=== PATIENT | female | born 1955 | race Caucasian/White ===

== ENCOUNTER → 2016-06-04 | Outpatient (CLI) | payer BC ==
[~2016-06-04] MED LIST: ACYCLOVIR400 MG PO; BACTRIM DS 8001 TAB PO; CHEMO
== END ==
LOC: SUN.DIA 10:50
DX: E11.65 Type 2 diabetes mellitus with hyperglycemia (principal); Z68.23 Body mass index [BMI] 23.0-23.9, adult; Z71.3 Dietary counseling and surveillance
CPT/HCPCS: G0108

== ENCOUNTER → 2016-06-19 | Outpatient (CLI) | payer BC, MEDICAID | LOC: SUN.DIA 09:00 | DX: E11.65 Type 2 diabetes mellitus with hyperglycemia (principal); Z71.3 Dietary counseling and surveillance | CPT/HCPCS: G0109 ==

== ENCOUNTER → 2016-07-01 | Outpatient (CLI) | payer BC, MEDICAID | LOC: SUN.DIA 14:00 | DX: E11.65 Type 2 diabetes mellitus with hyperglycemia (principal); Z68.23 Body mass index [BMI] 23.0-23.9, adult; Z71.3 Dietary counseling and surveillance | CPT/HCPCS: G0108 ==

== ENCOUNTER → 2016-07-02 | Outpatient (CLI) | payer BC, MEDICAID | LOC: SUN.DIA 08:26 | DX: E11.65 Type 2 diabetes mellitus with hyperglycemia (principal); Z79.84 Long term (current) use of oral hypoglycemic drugs; Z71.3 Dietary counseling and surveillance | CPT/HCPCS: G0109 ==

== ENCOUNTER → 2016-07-16 | Outpatient (CLI) | payer BC | LOC: SUN.DIA 07-09 09:43 | DX: E11.65 Type 2 diabetes mellitus with hyperglycemia (principal); Z79.84 Long term (current) use of oral hypoglycemic drugs; Z71.3 Dietary counseling and surveillance | CPT/HCPCS: G0109 ==

== ENCOUNTER → 2019-05-12 | Outpatient (CLI) | payer MEDICARE ==
[~2019-05-12] MED LIST changes: +PRILOSEC 20MG20 MG PO
== END ==
LOC: COL.RAD 05-09 08:00
DX: R10.32 Left lower quadrant pain (principal)
CPT/HCPCS: Q9967

== ENCOUNTER 2019-05-31 11:06 | Inpatient (IN) | payer MEDICARE ==
[~2019-05-31] VITALS: Ht 154.9 cm; Wt 61.5 kg
[2019-05-31] MEDS ORDERED: PRILOSEC 20MG20 MG PO ×2 (12:12→12:14)
--- NOTE | 2019-05-31 13:03 | NUR ---
Pt admission completed, med rec and pharmacy completed. Hospitalist aware of pt arrival, in to assess pt. Pt is A&O, independent in room. Pt c/o of abdominal pain, feels like "stabbing". Took Aleve and doesn't want anything "strong" for pain. LH IV started , flushes w/o complications. Pt denies SOB, breathing is even and unlabored on room air. Pt denies dizziness, diarrhea. Pt stated she had some nausea last night. No other needs at this time.
[2019-05-31 13:16] VITALS: BP 114/48; PULSE 101; TEMP 99.9
[2019-05-31 14:13] LABS: BASO % 0.2 % (0.0-2.0); GRAN # 14.8 (1.4-6.5); GRAN % 89.5 % (42.2-75.2); HEMATOCRIT 43.3 % (37.0-47.0); HEMOGLOBIN 14.7 g/dl (12.5-16.0); LYMPH % 6.2 % (20.0-51.0); MEAN CELL VOLUME 89 fl (80.0-100.0); MEAN CORPUSCULAR HEMOGLOBIN 30 pg (27.0-31.0); MEAN CORPUSCULAR HGB CONC 34 g/dl (33.0-37.0); MONO # 0.6 (0.1-0.6); MONO % 3.7 % (1.7-9.3); PLATELET COUNT 157 K/mm3 (130-400); RED BLOOD COUNT 4.86 M/mm3 (4.10-5.30); REDCELL DISTRIBUTION WIDTH-CV 13.3 % (11.5-14.5)
[2019-05-31 14:19] LABS: INR 1.4 (0.8-3.0); PROTHROMBIN TIME 15.9 SECONDS (9.7-12.8)
[2019-05-31 14:21] LABS: PARTIAL THROMBOPLASTIN TIME 31.8 SECONDS (26.0-37.0)
[2019-05-31 14:24] LABS: ALBUMIN 4.4 gm/dL (3.5-5.0); BILIRUBIN,TOTAL 1.6 mg/dL (0.0-1.0); CALCIUM 9.4 mg/dL (8.4-10.2); CREATININE, serum 0.79 (0.52-1.25); POTASSIUM 3.8 mmol/L (3.4-5.0); TOTAL PROTEIN 6.6 gm/dL (6.4-8.2)
--- NOTE | 2019-05-31 14:30 | NUR ---
Pt received toradol per MAR for PRN pain medication. Pt appears indecisive, anxious and states "I don't know" when asked questions about pain and what she would like. Pt doesn't "want anything strong", wants to "feel her pain", wants "something for pain". Pt repeatedly asks what she should do. Discussed pain medication w/ patient. States she doesn't "want it to knock her out". Will check back on pt.
[2019-05-31 15:45] VITALS: BP 109/54; PULSE 107; TEMP 99.4
--- NOTE | 2019-05-31 15:45 | NUR ---
Pt states she is having sharp pains and doesn't know if the Toradol is working. Pt sitting in bed, talking to friend at bedside. Talking with pt, she states the pain "comes and goes but is constant". Discussed getting something else for pain. Pt indecisive. Hospitalist put Ultram on JUN. Pt states she doesn't want it at this time.
--- NOTE | 2019-05-31 16:30 | NUR ---
Pt wanting something for pain, discussed the Ultram again, pt stated she would like to try it. Pt has received toradol and ultram for pain so far. Pt started on abx. Pt ambulating to bathroom independently. No other concerns noted.
--- NOTE | 2019-05-31 17:58 | NUR ---
This nurse checked in on pt to reassess pain, pt sleeping in bed. Doesn't appear to be in distress.
[2019-05-31 20:04] LABS: MUCOUS Present /lpf; PH 5 (5-8); SQUAMOUS EPITHELIAL 0-2 /hpf; URINE APPEARANCE Hazy; URINE BACTERIA None Seen /hpf; URINE BILIRUBIN Negative (NEGATIVE); URINE BLOOD 2+ (NEGATIVE); URINE COLOR Yellow; URINE GLUCOSE 1+ (NEGATIVE); URINE KETONE Trace (NEGATIVE); URINE LEUKOCYTE ESTERASE Negative (NEGATIVE); URINE NITRATE Negative (NEGATIVE); URINE PROTEIN(semi-quant) 1+ (NEGATIVE); URINE UROBILINOGEN Negative (NEGATIVE)
[2019-05-31 20:45] VITALS: BP 123/45; PULSE 109; TEMP 98.6
[2019-05-31 22:20] VITALS: BP 109/51; PULSE 111; TEMP 99.6
[2019-05-31 22:48] LABS: COLLECTION METHOD CLEAN CATCH
[2019-06-01] VITALS (13 sets, daily range): BP systolic 100–126; BP diastolic 44–99; PULSE 94–108; TEMP 97.9–99.6
[2019-06-01 06:09] LABS: BASO % 0.2 % (0.0-2.0); EOS % 0.1 % (0-4.0); GRAN # 9.6 (1.4-6.5); GRAN % 84.3 % (42.2-75.2); LYMPH # 1.2 (1.2-3.4); LYMPH % 10.6 % (20.0-51.0); MEAN CELL VOLUME 92 fl (80.0-100.0); MEAN CORPUSCULAR HGB CONC 34 g/dl (33.0-37.0); MEAN PLATELET VOLUME 9.3 fl (7.4-10.4); MONO # 0.5 (0.1-0.6); MONO % 4.1 % (1.7-9.3); PLATELET COUNT 126 K/mm3 (130-400); RED BLOOD COUNT 3.83 M/mm3 (4.10-5.30); REDCELL DISTRIBUTION WIDTH-CV 13.7 % (11.5-14.5)
[2019-06-01 06:27] LABS: CALCIUM 8.3 mg/dL (8.4-10.2); CREATININE, serum 0.7 (0.52-1.25); POTASSIUM 3.5 mmol/L (3.4-5.0)
[2019-06-01 06:32] LABS: HEMATOCRIT 35.1 % (37.0-47.0); MEAN CORPUSCULAR HEMOGLOBIN 31 pg (27.0-31.0)
[2019-06-01 06:33] LABS: HEMOGLOBIN 11.8 g/dl (12.5-16.0)
--- NOTE | 2019-06-01 07:06 | NUR ---
Patient resting in bed, did not request pain medication until 0530. Patient states tramadol "takes the edge off." Patient has been afebrile this shift, antibiotics given as ordered. No complaints of nausea or vomiting.
--- NOTE | 2019-06-01 10:00 | NUR ---
Patient alert and oriented, answers questions appropriately. See assessment. Abdomen soft, non tender, non distended. Bowel sounds active x4 quads. +Flatus. +Bowel movement. Patient appears anxious, states "I think I perfed my bowel, then refers to, "I think my appendix ruptured. Assured patient everything is appropriate. No other c/o at this time.
--- NOTE | 2019-06-01 13:36 | NUR ---
TRISHA met with the patient to discuss discharge plan. The patient lives in [place] with her mother, Yesy, and is Yesy's caregiver. She states that her daughter, Scarlett, is helping take care of her mother while she is here. She reports independence with ADLs and does not have any DME. The patient's PCP is Dr. Manjit Araujo and she receives her medications at [facility]. She reports no difficulties obtaining her meds. The patient does not have advanced directives completed, but she was interested in obtaining a form for DPOA-HC. TRISHA provided. The patient plans to return home with her mother upon discharge. No additional needs at this time.
--- NOTE | 2019-06-01 14:45 | NUR ---
Dr Cordero notified of consult.
--- NOTE | 2019-06-01 15:39 | NUR ---
Dr Cordero here to see patient.
--- NOTE | 2019-06-01 16:59 | NUR ---
Patient to surgery at this time.
--- NOTE | 2019-06-01 20:00 | NUR ---
Patient got back to the floor at 1930, she is alert and mostly oriented. She is very forgetful and keeps asking the same questions repeatedly. She is having some drainage from umbilicus site, it clear and light pink. It started in recovery and is slowing down. Changed the ABD pad at this time. BP is a little low but is slowly coming back up. No other changes at this time. Call light within reach.
--- NOTE | 2019-06-02 00:30 | NUR ---
Patient is doing better but still forgetful. No complaints of pain or nausea. Her drainage to her abdomen is almost stopped. Changed ABD again. No blood noted to the ABD pad. The other 2 incisions are C/D/I. No other changes at this time. Call light within reach.
[2019-06-02 04:00] VITALS: BP 112/52; PULSE 85; TEMP 98.2
--- NOTE | 2019-06-02 06:34 | NUR ---
Patient slept most the night. Did not have to change her dressing again. No complaints of nausea. She stated she had mild pain when getting up to the bathroom but did not want any pain medications. No other changes at this time. Call light within reach.
[2019-06-02 07:57] VITALS: BP 106/55; PULSE 76; TEMP 97.7
--- NOTE | 2019-06-02 08:00 | NUR ---
Patient resting in bed at this time. Patient is alert and oriented but forgetful, needs answers to questions repeated several times. Patient reports that she would like a shower at some point today, informed patient that we will need to check with the surgeon to make sure she is able to get her incisions wet. Patient verbalizes understanding and reports that she doesn't mind waiting until this evening or tomorrow. Called dietary to order clear liquid tray for breakfast. Patient denies further needs at this time, call light within reach.
[2019-06-02 08:07] LABS: HEMOGLOBIN 11.8 g/dl (12.5-16.0); MEAN CELL VOLUME 92 fl (80.0-100.0); MEAN CORPUSCULAR HEMOGLOBIN 31 pg (27.0-31.0); MEAN CORPUSCULAR HGB CONC 33 g/dl (33.0-37.0); MEAN PLATELET VOLUME 9.9 fl (7.4-10.4); PLATELET COUNT 139 K/mm3 (130-400); RED BLOOD COUNT 3.87 M/mm3 (4.10-5.30); REDCELL DISTRIBUTION WIDTH-CV 13.4 % (11.5-14.5)
[2019-06-02 08:13] LABS: HEMATOCRIT 35.4 % (37.0-47.0)
[2019-06-02 08:58] LABS: BAND 23 % (0-10); LYMPHOCYTE 6 % (20.0-51.0); NEUTROPHILS 69 % (42.0-75.2); PLATELET ESTIMATE NORMAL (NORMAL)
--- NOTE | 2019-06-02 11:30 | NUR ---
Initial visit; Patient thanked Civil Designer for offering God's blessings and making sure she has enough support from family and friends. Patient states she is well supported.
[2019-06-02 11:33] VITALS: BP 123/53; PULSE 72; TEMP 98.4
--- NOTE | 2019-06-02 15:30 | NUR ---
Patient reports that she is upset that she requested a shower and no one has helped her take one. Reminded patient that she had previously informed staff that she would like to wait until this evening when her daughter brought her toiletries; informed patient that staff would be glad to assist her with a shower as surgeon had given clearance. Patient states she would like one as soon as possible. Padmaja also reports that her IV has been sore since a student nurse bumped it this morning. IV is infusing NS at this time, no swelling, no temprature change to surrounding tissue, no redness, drainage or phlebitis is apparent. Informed patient that if the current IV is uncomfortable it can be moved per her wishes. IV to left hand is removed per patient request and TUBE ROOM CASHIER helped the patient shower. IV access placed in the right hand, patient tolerated procedure well. Patient reports pain in her abdomen but declines pain medication at this time, call light within reach.
[2019-06-02 17:23] VITALS: BP 120/56; PULSE 76; TEMP 97.1
[2019-06-02 20:00] VITALS: BP 126/54; PULSE 86; TEMP 98.1
--- NOTE | 2019-06-02 20:00 | NUR ---
PT IS AWAKE, ALERT, OX4; ALTHOUG PT DOES ACKNOWLEDGE THAT SHE HAS BEEN REPEATING THINGS TODAY WHICH IS NOT NORMAL FOR HER. RN REPORTS THAT PT HAS HAD PERIODS OF FORGETFULNESS AND AGITATION THROUGH THE DAY. PT AND DAUGHTER REPORT THAT PT HAS "BRIGHT RED CHEEKS" AND "SOMETHING ISN'T RIGHT". PT DENIES ANY SOB, ITCHING, BURNING, OTHER SYMPTOMS. PT STATES THAT SHE "USED TO BE DIABETIC" AND REQUESTS THAT HER BLOOD SUGAR BE CHECKED AND COULD POSSIBLY BE THE CAUSE OF HER RED CHEEKS SINCE "THIS HAPPENED LAST TIME I HAD THE DIABETES". REASSURED PT THAT HER TEMP AND VS ARE ALL NORMAL. PT DENIES PAIN AT THIS TIME. WILL NOTIFY PT DOCTOR OF PT CONCERNS. CALL LIGHT WITHIN REACH.
--- NOTE | 2019-06-02 21:44 | NUR ---
HOSPITALIST, LEVI, NOTIFIED OF PT'S CONCERN REGARDING HER "BRIGHT RED CHEEKS" AND THAT "MY DIABETES IS COMING BACK." REPORTED SPOT CHECK OF BLOOD SUGAR WAS 177, TAKEN PER PT REQUEST. AND REPORTED THAT PT APPEARS ANXIOUS ALTHOUGH DOES NOT WISH TO HAE ANY ANXIETY MEDICATIONS ORDERED. PT STATED THAT SHE WAS WORRIED THAT THE ULTRAM SHE TOOK WAS MAKING HER ANXIOUS AND IS REQUESTING TYLENOL INSTEAD. NEW ORDERS RECEIVED FOR SS INSULIN AND ACCUCHECKS Q6, HGB A1C, AND TYLENOL PRN.
[2019-06-02 23:50] VITALS: BP 105/54; PULSE 75; TEMP 98
[2019-06-03 04:42] VITALS: BP 97/51; PULSE 76; TEMP 98.4
--- NOTE | 2019-06-03 05:17 | NUR ---
PT HAS HAD A DECENT NIGHT. SLEPT INTERMITTENTLY THROUGH THE NIGHT. PT REPORTS SOME TENDERNESS TO ABDOMEN AT LLQ OCC, DENIES NEED FOR INTERVENTIONS, TOOK SOME TYLENOL EARLIER IN THE EVENING FOR THIS. PT IS SOMEWHAT ANXIOUS AT TIMES ALTHOUGH STATES THAT SHE DOES NOT WANT TO TAKE MEDICATION FOR HER ANXIETY. PT HAS BEEN PLEASANT FOR THE MOST PART, ALTHOUGH VOICES SOME COMPLAINTS THAT NURSING HAS NOT ALWAYS COMPLIED TO HER REQUESTS. PT FAMILY HAS VOICED THEIR CONCERNS WITH GIS PHYSICAL SCIENTIST. PT HAS BEEN AMBULATING INDEPENDENTLY WITHIN ROOM, VOIDED MULTIPLE TIMES THIS SHIFT. REPORTS INCREASED PAIN TO ABD FOLLOWING VOIDING. DENIES URINARY PAIN. PT HAS TOLERATED HER CLEAR LIQUIDS, ALTHOUGH HAS HAD MINIMAL INTAKE. IVF INFUSING WITHOUT ISSUES TO SITE IN R HAND. PT WAS STARTED ON ACCUCHECKS AND LOW DOSE SS INSULIN TONIGHT FOLLOWING CONCERNS THAT HER "DIABETES IS BACK". BS HAVE BEEN SLIGHTLY ELEVATED AND REQURES NO INSULIN TO BE GIVEN THUS FAR. INCISIONS TO ABD ARE CIRO WITH SCANT CLEAR DRAINAGE FROM LOW MID INCISION. PT ALERT, OX4, BUT DOES REPEAT STATEMENTS, INFO OCC THEN REALIZES THAT SHE IS REPEATING HERSELF. BP IS SLIGHTLY LOW THIS AM, ALTHOUGH NOT FAR FROM HER PREVIOUS READINGS; PT DENIES FEELING LIGHTHEADED OR DIZZY, INSTRUCTED PT TO REPORT THESE SYMPTOMS IF OCCUR. PT HAS ASKED MULTIPLE TIMES THIS SHIFT IF "THIS COULD BE MY HEART?" REASSURED PT THAT THERE IS CURRENTLY NO INDICATION THAT SHE IS HAVING HEART ISSUES. PT DENIES CP, SOB, DIZZINESS. WILL PASS LAONG THIS CONCERN TO ONCOMING RN. CALL LIGHT WITHIN REACH.
--- NOTE | 2019-06-03 07:15 | NUR ---
REPORT GIVEN TO KELLY BRAGG.
[2019-06-03 07:25] VITALS: BP 111/51; PULSE 80; TEMP 97.9
[2019-06-03 07:28] LABS: BASO % 0.2 % (0.0-2.0); EOS % 0.2 % (0-4.0); GRAN # 7.5 (1.4-6.5); GRAN % 81.3 % (42.2-75.2); HEMOGLOBIN 11.8 g/dl (12.5-16.0); LYMPH # 1.1 (1.2-3.4); LYMPH % 11.5 % (20.0-51.0); MEAN CELL VOLUME 90 fl (80.0-100.0); MEAN CORPUSCULAR HEMOGLOBIN 30 pg (27.0-31.0); MEAN CORPUSCULAR HGB CONC 34 g/dl (33.0-37.0); MEAN PLATELET VOLUME 8.9 fl (7.4-10.4); MONO # 0.6 (0.1-0.6); PLATELET COUNT 176 K/mm3 (130-400); RED BLOOD COUNT 3.89 M/mm3 (4.10-5.30); REDCELL DISTRIBUTION WIDTH-CV 13.3 % (11.5-14.5)
[2019-06-03 07:40] LABS: CALCIUM 8.2 mg/dL (8.4-10.2); CREATININE, serum 0.61 (0.52-1.25); HEMATOCRIT 34.8 % (37.0-47.0); POTASSIUM 3.4 mmol/L (3.4-5.0)
[2019-06-03 10:00] VITALS: BP 117/52; PULSE 81; TEMP 98.2
--- NOTE | 2019-06-03 12:00 | NUR ---
PATIENT IS C/O LLQ PAIN WHERE ONE OF HER LAP SITES ARE. GAVE PRN TORADOL IV, 325MG PO TORADOL & APPLIED WARM BLANKET TO ABD. PATIENT IS EMOTIONAL, HAS HX OF ANXIETY. PATIENT JUST KEEPS STATING SHE IS AFFRAID HER NON-HODGKINS WILL COME BACK. NURSING PROVIDED EDUCATION ON PERF BOWL AND RECOVERY. SPENT APPROX 30-40 MIN AT BEDSIDE WITH EACH PATIENT INTERACTION. PATIENT THANKED NURSING FOR CARE. RESTING WITH CALL LIGHT IN REACH.
--- NOTE | 2019-06-03 13:26 | NUR ---
Supervisor Advice met with patient to review discharge plan. 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 Patient states her two daughters are helping her out for the time being. Patient reports she was feeling depressed earlier today but after having some pain medication is feeling better. Patient had no other questions or concerns at this time.
--- NOTE | 2019-06-03 15:00 | NUR ---
PATIENT CALLS OUT OFTEN AND HAS LOTS OF QUESTIONS. PATIENT SEEMS VERY NERVOUS TO GO HOME. PATIENT HAS ALSO SPENT A GREAT MAJORITY OF HER DAY TRYING TO FIGURE OUT WHY SHE ENDED UP WITH A PERF BOWL. PATIENT IS SURE IT WAS EITHER, HER FAILURE TO COMPLETE HER ANTIBIOTIC REGIMEN, OR THE BARRIUM TEST SHE HAD TO DIAGNOSE THE DIVERTICULI, OR HER HX OF NON-HODGKINS. NURSING PROVIDED EDUCATION ON DIVERTICULI. PATIENT HAS LOTS OF ANXIETY AND CRIES FROM TIME TO TIME. NURSING HAS SPENT TIME TALKING WITH HER OFF AND ON ALL DAY, OFTEN FOR 30-45 MIN.
[2019-06-03 16:11] VITALS: BP 124/61; PULSE 90; TEMP 98.8
--- NOTE | 2019-06-03 16:15 | NUR ---
DR.SAVILLE SEBASTIAN, SEE ORDERS.
--- NOTE | 2019-06-03 17:00 | NUR ---
PATIENT HAS NOT HAD ANY C/O N/V TODAY. ADVANCED DIET. PATIENT ENCOURAGED TO TAKE IT EASY. WILL MONITOR
[2019-06-03 19:50] VITALS: BP 110/63; PULSE 95; TEMP 100.3
--- NOTE | 2019-06-03 20:06 | NUR ---
PRN acetaminophen admin for temp 100.3. denies pain.
[2019-06-04 00:06] VITALS: BP 114/51; PULSE 92; TEMP 99.1
[2019-06-04 05:16] VITALS: BP 116/54; PULSE 80; TEMP 98.2
--- NOTE | 2019-06-04 07:13 | NUR ---
ASSESSMENT COMPLETE. RESTING IN BED. 3 ABD LAP SITES CDI. DENIES PAIN/DISCOMFORT AT THIS TIME.
[2019-06-04 07:47] LABS: BASO % 0.4 % (0.0-2.0); EOS % 0.5 % (0-4.0); GRAN % 78.9 % (42.2-75.2); HEMOGLOBIN 11.5 g/dl (12.5-16.0); LYMPH % 12.8 % (20.0-51.0); MEAN CELL VOLUME 89 fl (80.0-100.0); MEAN CORPUSCULAR HEMOGLOBIN 30 pg (27.0-31.0); MEAN CORPUSCULAR HGB CONC 34 g/dl (33.0-37.0); MEAN PLATELET VOLUME 8.9 fl (7.4-10.4); MONO # 0.5 (0.1-0.6); MONO % 6.3 % (1.7-9.3); PLATELET COUNT 176 K/mm3 (130-400); RED BLOOD COUNT 3.81 M/mm3 (4.10-5.30)
[2019-06-04 07:53] LABS: HEMATOCRIT 33.9 % (37.0-47.0)
[2019-06-04 08:25] LABS: CALCIUM 8.1 mg/dL (8.4-10.2); CREATININE, serum 0.57 (0.52-1.25)
[2019-06-04 08:37] LABS: POTASSIUM 2.8 mmol/L (3.4-5.0)
[2019-06-04 08:49] VITALS: BP 115/57; PULSE 100; TEMP 98.9
--- NOTE | 2019-06-04 09:21 | NUR ---
Dr Hudson here to see patient.
[2019-06-04 11:15] VITALS: BP 112/68; PULSE 92; TEMP 98.2
[2019-06-04 15:57] VITALS: BP 121/57; PULSE 94; TEMP 98
[2019-06-04 19:39] VITALS: BP 127/65; PULSE 92; TEMP 98.6
--- NOTE | 2019-06-04 21:00 | NUR ---
PT TOOK A SHOWER, FEELING LOWER ABD DISCOMFORT, NOT ENOUGH TO NEED PAIN MEDS. NOTED 3 LAP SITES OPEN TO AIR TO ABDOMEN. WILL MONITOR FOR CHANGES.
[2019-06-05 00:16] VITALS: BP 117/54; PULSE 86; TEMP 98.6
--- NOTE | 2019-06-05 01:09 | NUR ---
Pt did not want the PRN insulin for BS of 201. Will recheck at 0600.
[2019-06-05 04:38] VITALS: BP 126/54; PULSE 93; TEMP 99.6
--- NOTE | 2019-06-05 06:30 | NUR ---
TAKES AM MEDS WITHOUT PROBLEM. MO=125 THIS AM, NO NEED FOR INSULIN. PT HOPES TO GO HOME.
[2019-06-05 07:18] LABS: MAGNESIUM 2.2 mg/dL (1.6-2.3)
[2019-06-05 08:08] VITALS: BP 132/57; PULSE 90; TEMP 98.6
--- NOTE | 2019-06-05 10:00 | NUR ---
Patient alert and oriented, answers questions appropriately. See assessment. Abdomen soft, non tender, non distended. Bowel sounds active x4 quads. +Flatus. +Bowel movement. Lap sites to abdomen with edges well approximated, no redness or drainage noted. Post op exercises and ambulation reviewed with patient. No c/o at this time.
[2019-06-05 11:10] VITALS: BP 115/60; PULSE 87; TEMP 98.2
[2019-06-05 15:32] VITALS: BP 104/73; PULSE 97; TEMP 98.3
[2019-06-05 19:19] VITALS: BP 116/49; PULSE 107; TEMP 100.2
--- NOTE | 2019-06-05 21:00 | NUR ---
PT DENIES NEEDS AT THIS TIME.
[2019-06-06] VITALS (8 sets, daily range): BP systolic 89–132; BP diastolic 47–61; PULSE 84–106; TEMP 98.2–101.3
--- NOTE | 2019-06-06 00:59 | NUR ---
PT REPORTED TO HAVE TEMP 101. FOUND PATIENT UP IN ROOM, BREATHING RAPIDLY AND COMPLAINING OF LOWER ABD PAIN. OFFERED DOSE OF MORPHINE WHICH SHE REFUSED. INSTRUCTED TO SLOW HER BREATHING DOWN, LUNGS SOUND CLEAR. ABD SOFT WITH ACTIVE BOWEL SOUNDS. MEDICATED WITH TYLENOL 650MG PO FOR PAIN. RECHECKED TEMPERATURE AT THIS TIME WITH READING OF 98.7 ORALLY. PT THEN DECIDES TO WALK IN HALLWAYS. APPEARS MORE CALM.
--- NOTE | 2019-06-06 06:15 | NUR ---
Medicated with Tylenol 650mg po for lower abd. pain. Remains afebrile.
[2019-06-06 06:34] LABS: HEMATOCRIT 36.2 % (37.0-47.0); HEMOGLOBIN 12.4 g/dl (12.5-16.0); MEAN CELL VOLUME 90 fl (80.0-100.0); MEAN CORPUSCULAR HEMOGLOBIN 31 pg (27.0-31.0); MEAN CORPUSCULAR HGB CONC 34 g/dl (33.0-37.0); MEAN PLATELET VOLUME 8.9 fl (7.4-10.4); PLATELET COUNT 224 K/mm3 (130-400); RED BLOOD COUNT 4.04 M/mm3 (4.10-5.30)
[2019-06-06 06:51] LABS: CALCIUM 8.8 mg/dL (8.4-10.2); CREATININE, serum 0.6 (0.52-1.25); MAGNESIUM 2.3 mg/dL (1.6-2.3); POTASSIUM 3.6 mmol/L (3.4-5.0)
[2019-06-06 07:22] LABS: BAND 15 % (0-10); EOSINOPHIL 1 % (0-4); LYMPHOCYTE 17 % (20.0-51.0); NEUTROPHILS 66 % (42.0-75.2)
[2019-06-06 07:23] LABS: PLATELET ESTIMATE NORMAL (NORMAL)
--- NOTE | 2019-06-06 09:51 | NUR ---
Patient resting in bed at this time. 3 lap sites to ABD are WA, no drainage noted. Bowel sounds audible in all quadrants. Patient denies pain or needs at this time, call light within reach.
--- NOTE | 2019-06-06 09:59 | NUR ---
Patient is currently laying in bed watching TV. Patient is not complaining of any discomfort and has voiced a desire to go home.
--- NOTE | 2019-06-06 14:09 | NUR ---
Canteen Manager met with patient to review discharge plan. Patient still plans on returning home upon discharge. SW to continue to follow as needed.
--- NOTE | 2019-06-06 18:19 | NUR ---
Patient ambulating in her room at this time. Patient refuses to ambulate in hallway, states she needs a shower, but does not want a shower now. Patient reports mild pain in her abdomen, declines pain medication at this time. Patient denies further needs, call light within reach.
--- NOTE | 2019-06-06 21:54 | NUR ---
Patient had ambulated in hallway. Now asking for Tylenol for abd discomfort. Medicated with HS dose of Omnicef and dose of Tylenol 650mg. Has temp of 100.3. Encouraged use of IS with coughing and deep breathing. Room is cool and does not have many blankets on at this time. Abdomen soft, BS noted. Offered to wrap IV site so she could shower, she denies at this time.
[2019-06-07 00:27] VITALS: BP 121/54; PULSE 96; TEMP 100.3
[2019-06-07 04:34] VITALS: BP 107/50; PULSE 96; TEMP 99.8
[2019-06-07 07:09] VITALS: BP 11/52; BP 111/52; PULSE 84; TEMP 98.3
[2019-06-07 07:19] LABS: BASO % 0.3 % (0.0-2.0); EOS % 0.4 % (0-4.0); GRAN # 9.1 (1.4-6.5); GRAN % 80.1 % (42.2-75.2); HEMOGLOBIN 11.9 g/dl (12.5-16.0); LYMPH # 1.2 (1.2-3.4); LYMPH % 10.2 % (20.0-51.0); MEAN CELL VOLUME 88 fl (80.0-100.0); MEAN CORPUSCULAR HEMOGLOBIN 30 pg (27.0-31.0); MEAN CORPUSCULAR HGB CONC 34 g/dl (33.0-37.0); MEAN PLATELET VOLUME 8.9 fl (7.4-10.4); MONO # 0.8 (0.1-0.6); MONO % 6.7 % (1.7-9.3); PLATELET COUNT 228 K/mm3 (130-400); RED BLOOD COUNT 4.01 M/mm3 (4.10-5.30)
[2019-06-07 07:30] LABS: HEMATOCRIT 35.2 % (37.0-47.0)
[2019-06-07 07:34] LABS: CALCIUM 8.9 mg/dL (8.4-10.2); CREATININE, serum 0.61 (0.52-1.25); POTASSIUM 3.4 mmol/L (3.4-5.0)
--- NOTE | 2019-06-07 07:44 | NUR ---
Sitting up in bed with eyes open. Rates pain 1/10 in abd. Patient says that she hopes that she can go home today. Has a little bit of a dry cough. Has been using incentive spirometer. Encouraged patient also to get up and ambulate in halls. Patient will inquire with the doctor when they come around about medication for yeast infection on discharge. Patient denies further needs at this time.
[2019-06-07] MEDS ORDERED: OMNICEF 300MG300 MG PO (08:40)
[2019-06-07] MEDS ORDERED: PROTONIX 40MG T40 MG PO (08:41)
[2019-06-07] MEDS ORDERED: TYLENOL 325MG325 MG PO (08:41)
[2019-06-07] MEDS ORDERED: K-DUR20 MEQ PO (08:42)
--- NOTE | 2019-06-07 09:06 | NUR ---
Patient having soreness in abd and requests Tylenol 325mg. Does not want the full 650mg amunt. Administered. Patient also having pain in IV and requests for the IV to be dc'd. IV dc'd with catheter intact. Patient denies needs.
--- NOTE | 2019-06-07 10:28 | NUR ---
Reviewed discharge instructions with the patient. Questions answered. Patient signs discharge paperwork. Discharge packet provided to the patient. Patient says that she is going to contact her daughter to see when she will be able to pick her up and she will let us know. Patient gathering belongings in room. Denies needs at this time.
--- NOTE | 2019-06-07 10:51 | NUR ---
Patient's daughter here to take patient home via POV. Patient escorted out to vehicle via wheelchair by MARIA L Rojas.
== END 2019-06-07 10:52 | disposition home or self-care (01) | DRG 854 ==
LOC: MEDICAL 11:06 → SURG 14:51 → MEDICAL 14:52 → SURG 06-01 19:35
PROVIDERS: Internal Medicine; Physician Assistant; Surgery; ADMIT Hospitalist
PROC: 0WJG4ZZ Inspection of Peritoneal Cavity, Percutaneous Endoscopic Approach (ICD-10-PCS; 2019-06-01)
PROC: 3E1M38Z Irrigation of Peritoneal Cavity using Irrigating Substance, Percutaneous Approach (ICD-10-PCS; principal; 2019-06-01 18:15)
DX: A41.9 Sepsis, unspecified organism (principal); K57.20 Diverticulitis of large intestine with perforation and abscess without bleeding; C85.90 Non-Hodgkin lymphoma, unspecified, unspecified site; F41.9 Anxiety disorder, unspecified; K21.9 Gastro-esophageal reflux disease without esophagitis; R73.03 Prediabetes; D64.9 Anemia, unspecified; E87.6 Hypokalemia; Z90.710 Acquired absence of both cervix and uterus
CPT/HCPCS: 99222-AI; 99232-AI; 99233-AI; 99239; A4216; A9284; J0696; J1100; J1650; J1885; J2250; J2270; J2405; J2704; J3010; J3480; J7030; Q9967

== ENCOUNTER → 2020-08-07 | Outpatient (CLI) | payer MEDICARE ==
[~2020-08-07] MED LIST changes: +K-DUR20 MEQ PO; +OMNICEF 300MG300 MG PO; +PROTONIX 40MG T40 MG PO; +TYLENOL 325MG325 MG PO
== END ==
LOC: COL.VAS 13:07
DX: M79.662 Pain in left lower leg (principal)